=== PATIENT | male | born 1975 | race African-American/Black ===

== ENCOUNTER 2022-08-18 07:04 | Day surgery (SDC) | payer OTHER, SELFPAY ==
--- NOTE | 2022-08-17 21:35 | W.PM.DSUDISC ---
Date of service: 08/18/22 Time of Service: 08:43 Discharge Plan Disposition Patient Disposition: HOME Condition: Good Condition: Good Discharge Details Reason For Visit: EGD and colonoscopy Attending Provider: Mark Corrales Primary Care Provider: Unknown,Unknown Home Meds and New Rx's Prescriptions: New omeprazole 20 mg capsule,delayed release(DR/EC) 20 mg PO DAILY Qty: 30 0RF Rx Instructions: Take 1 pill by mouth every day sucralfate [Carafate] 1 gram tablet 1 g PO QAC Qty: 30 0RF Continued acetaminophen 325 mg capsule 325 mg PO BID PRN lactase [Lactaid] 3,000 unit tablet 3,000 unit PO TID PRN Rx Instructions: administer with meals and/or snacks ibuprofen 200 mg tablet 600 mg PO Q6H PRN Discharge Instructions Instructions: Gastritis (DC), Diet for Stomach Ulcers and Gastritis (GEN) Additional Instructions: 1. If tolerated, consume a soft, low fiber diet for 1-2 days. 2. Do not drive, drink alcohol, operate machinery, make critical decisions, or do activities that require coordination or balance for 24 hours. 3. Because air was put into your colon during the procedure, expelling air from your rectum (passing gas or farting) is normal. 4. You may not have a bowel movement for 1-3 days because of the colonoscopy prep. This is normal. 5. You may experience a sore throat for 24 to 48 hours. You may use throat lozenges or gargle with warm salt water to relieve the discomfort. 6. Because air was put into your stomach during the procedure, you may experience some belching. 7. Go directly to the emergency room if you notice any of the following: Develop chills (warm to touch), or if you have a thermometer and your temperature is above 101 Difficulty breathing or difficultly swallowing Persistent vomiting Severe abdominal pain, other than gas cramps Severe chest pain Black, tarry stools Any bleeding ? exceeding one tablespoon 8. Call your physician if the site where your intravenous was started becomes red, swollen, painful, and warm to touch. 9. Your physician has reviewed your pre-procedure medications. Please continue to take those medications as previously ordered. You will be given specific information/education regarding any changes to your medications before leaving. Activity:: Activity as Tolerated Activity:: Activity as Tolerated Diet:: As Tolerated DS: Diagnosis Discharge Diagnosis (1) Gastritis: Status: Acute Asessment and Plan: You have diffuse inflammation of the stomach lining. Start taking omeprazole and sucralfate as ordered. I will be in touch when I have the results of the biopsies that were performed. (2) Rectal ulcer: Status: Acute Asessment and Plan: I will contact you with results of these biopsies.
--- NOTE | 2022-08-17 21:37 | W.COLOREPORT ---
Date of service: 08/18/22 Time of Service: 08:51 Colonoscopy Report Date of procedure: 08/18/22 Pre-op diagnosis general: Anemia Post-op diagnosis procedure note: other (Anemia with gastritis) Procedure: Esophagogastroduodenoscopy and colonoscopy Surgeon: Mark Corrales Anesthesia Type: General:No Airway Estimated blood loss (mL): 20 Pathology: other (Duodenum, duodenal ulcers, antral ulcers, antrum, gastric body, esophagus, rectal ulcer) Complications: None Disposition: same day Indications: Tyrel is a 47-year-old male with anemia of uncertain etiology. Additionally, he has symptoms of gastritis. Prep: Miralax/Dulcolax Procedure Start Time: 08:07 Procedure End Time: 08:35 Retraction Time: 15 Findings: Diffuse gastritis, with subcentimeter prepyloric antral ulcers, as well as subcentimeter duodenal ulcers. Procedure Description: After the initiation of monitored anesthetic care, and with the assistance of a bite block, I advanced a standard gastroscope through the mouth past the hypopharynx and into the esophagus.? Under the direct vision of the scope, I advanced down the esophagus into the stomach.? Once I entered the stomach, I performed a brief inspection, followed by retroflexion towards the gastric cardia.? There was diffuse gastritis, mostly involving the gastric body. This appeared normal.? After that, I gently advanced the scope around the incisura angularis and examined the pylorus.? There was some linear ulceration radiating out from the pyloric orifice..? Next, I advanced the scope through the pylorus into the duodenum.? The mucosa was pink and healthy appearing.? There were a few subcentimeter ulcers of the duodenal bulb.? I was able to visualize bile draining into the duodenum through the ampulla Vater. The rest of the duodenum appeared normal. ?Next, I began retracting the endoscope.? I performed random biopsies of the duodenum, as well as biopsies of the duodenal bulb ulceration. Again, I returned to the stomach. I biopsied the prepyloric antral ulcers. I also perform random biopsies of the normal-appearing antrum, as well as the gastritis of the stomach body. All biopsies were performed with cold forceps, and there was minimal bleeding from each site. I then gently desufflated some of the stomach, and withdrew the endoscope into the distal esophagus. The GE junction and Z-line were normal-appearing around 39 cm. ?Finally, I withdrew the scope along the length of the esophagus taking great care to examine the entirety of the mucosa.? I did not appreciate any abnormalities. Next, we moved him all into the left lateral decubitus position., I began by performing an external anorectal exam.? Perineum and skin were normal, as was the anal verge.? There was no evidence of external hemorrhoids.? Next, I performed a digital rectal exam.? I did not appreciate any abnormal findings.? Next, I advanced a colonoscope into the rectal vault.? I performed retroflexion.? There were grade 1 internal hemorrhoids..? Using insufflation, I then advanced the colonoscope beyond the rectal folds and into the sigmoid colon before advancing towards the cecum.? Around 15 cm from the anal verge, there were 2 subcentimeter ulcers adjacent to the rectal fold. I performed cold biopsies with biopsy forceps here. There was minimal bleeding. The quality of the prep was excellent.? The scope was noted to be in the cecum by identification of the ileocecal valve and appendiceal orifice.? I then began withdrawing the colonoscope using repeated irrigation as necessary for full evaluation of the colonic mucosa. ?Once the scope was withdrawn to the level of the rectum, great care was taken to examine portions of the rectal folds.? Finally, the scope was withdrawn and the patient was brought to the same-day surgery recovery unit as the anesthetic wore off. ?The findings and instructions were shared with the patient prior to discharge.
--- NOTE | 2022-08-18 06:32 | W.ANESPRE ---
General Info Date of Service Date Performed: 08/18/22 Height: 5 ft 3 in Weight: 68.04 kg Body Mass Index (BMI): 26.5 Surgical Procedure: Operation Date: 08/18/22 08:20 Proposed Procedure Side Surgeon p Colonoscopy/Gastroscopy Mark Corrales MD Meds Allergies and Home Medications Allergies Allergy/AdvReac Type Severity Reaction Status Date / Time lactose Allergy Unknown Verified 08/18/22 07:29 Home Medication Medication Instructions Recorded acetaminophen 325 mg capsule 325 mg PO BID PRN 07/02/22 ibuprofen 200 mg tablet 600 mg PO Q6H PRN 07/02/22 lactase 3,000 unit tablet (Lactaid) 3,000 unit PO TID PRN 07/02/22 Current Visit Medications: Current Medications Generic Name Dose Route Start Last Admin Trade Name Freq PRN Reason Stop Dose Admin Hyoscyamine Sulfate 0.125 mg 08/17/22 21:37 Hyoscyamine 0.125 Mg Sl/Oral/Chew SL DIRECTED PRN Ringer's Solution 1,000 mls @ 80 mls/hr 08/18/22 06:00 IV 09/16/22 23:59 INFUSION DELANEY IV Miscellaneous Supplies 1 each 08/18/22 06:00 Iv Access IV 09/16/22 23:59 DIRECTED DELANEY Ondansetron HCl 4 mg 08/17/22 21:37 Ondansetron 4 Mg/2 Ml Vial IVP Q4H PRN PRN Nausea / Vomiting Sodium Chloride 0 ml 08/18/22 06:00 Normal Saline Flush 10 Ml Syr IV 09/16/22 23:59 PRN PRN Sodium Chloride 0 ml 08/18/22 06:00 Normal Saline 10 Ml Vial IJ 09/16/22 23:59 DIRECTED PRN Sterile Water 0 ml 08/18/22 06:00 Water,Injection,Sterile 10 Ml Vial IJ 09/16/22 23:59 DIRECTED PRN PFSH Active Problems Active Problems: Problem Status Onset Code Lactose intolerance E73.9 Low back pain M54.50 Anemia D64.9 Medical History Medical History COVID 05/31/22 Alcohol Alcohol Intake: current Substance Use Substance use type: does not use Vital Signs and Lab Results Lab Results Blood Type / Crossmatch: No Data to Display Complete Blood Count: No Data to Display Complete Metabolic Panel: No Data to Display Liver Function Panel: No Data to Display Coagulation Panel: No Data to Display Cardiac Panel: No Data to Display Arterial Blood Gas: No Data to Display Venous Blood Gas: No Data to Display Pancreas Panel: No Data to Display Thyroid Panel: No Data to Display Infectious Disease: No Data to Display Blood Cultures: No Data to Display Toxicology Panel: No Data to Display Anesthesia Assessment and Plan Anesthesia History Personal History: Unknown Anesthesia History Family History: Family History Unknown Exercise Tolerance Exercise Tolerance: Metabolic Equivalents>4 Cardiac & Pulmonary Exam Cardiac Exam: Normal S1/S2 Heart Sounds Pulmonary Exam: Clear Bilateral Breath Sounds Implantable Cardiac Device Does patient have a Pacemaker or an ICD?: No Airway Exam Known Difficult Airway: No Mallampati Class: 4 Mouth Opening: Narrow (< 3cm) Thyromental Distance: Greater than 3 cm Neck Range of Motion: Full ROM Neck Circumference: Normal Teeth Condition: Normal Dentition ASA Classification ASA Score: ASA 2 Emergency Case?: No NPO Status NPO Status: NPO Clears >2 hours, Solids >8 hours Anesthesia Plan Resuscitation Status: Full Code Anesthesia Technique: General Anesthesia Airway Planned: Natural Airway Monitors Used: Standard Monitors Preoperative Comments:: 47 yo male with anemia for EGD and colo. Sig PMHx: anemia, low back pain.
[2022-08-18 07:14] VITALS: BP 124/81; PULSE 60; RESP 16; TEMP 36.2; O2SAT 97
[2022-08-18] MEDS: Lactated Ringers 1,000 ML 80 ML IV (07:44)
[2022-08-18 07:48] VITALS: BMI 26.5
--- NOTE | 2022-08-18 08:07 | STOM_PTH ---
PATIENT: Tyrel Bird LOC: [facility] U#:[id number] AGE/SX: 47/M ROOM: RE08/18/[address]: Mark Corrales MD : [id number] BED: DIS: 08/18/2022 SPEC #: [id number] RECD: 08/18/22 12:38 STATUS: NIRAJ REQ #: [id number] JOSE: 08/18/22 08:[address]: Mark Corrales DEPT: Surgical Specimen RECD BY: Ginger Rincon ENTERED: 08/18/22 12:39 SP TYPE: STOMACH OTHR DR: Unknown,Unknown Tissues: 1 - BIOPSY BOWEL 2 - BIOPSY BOWEL 3 - STOMACH BIOPSY 4 - STOMACH BIOPSY 5 - STOMACH BIOPSY 6 - ESOPHAGUS BIOPSY 7 - BIOPSY BOWEL Procedures: GROSS AND MICRO LEVEL 4 Comments: [id number]
[2022-08-18 08:47] VITALS: BP 102/75; PULSE 62; RESP 18; TEMP 36.1; O2SAT 98
--- NOTE | 2022-08-18 08:58 | W.ANESPOSTOP ---
Postoperative Evaluation Date, Time and Location Date Performed: 08/18/22 Time Performed: 08:58 Patient Location: Day Surgery Unit Vital Signs Most Recent Imported Vital Signs: Most Recent Vital Signs Temp Pulse Resp BP Pulse Ox 36.1 C L 62 18 102/75 98 08/18/22 08:47 08/18/22 08:47 08/18/22 08:47 08/18/22 08:47 08/18/22 08:47 Pain Score Most Recent Pain Score: Most Recent Pain Score Pain Level 0 08/18/22 08:47 Assessment Mental Status: Arousable with meaningful communication Airway and Respiratory Function: Patent airway with normal (patient baseline) respiratory exam Cardiovascular Function: Hemodynamically Stable Hydration Status: Adequately Hydrated Nausea & Vomiting: No Nausea or Vomiting Pain: Pt. Denies Any Pain Peripheral Nerve Block: Patient did not receive a nerve block
[2022-08-18 09:18] VITALS: BP 124/84; PULSE 57; RESP 17; TEMP 36.1; O2SAT 99
== END 2022-08-18 09:47 | disposition home or self-care (01) ==
LOC: SUR 07:04
PROVIDERS: Visit Provider Surgery
PROC: (CPT 45380; principal; 2022-08-18 08:15)
DX: D64.9 Anemia, unspecified (principal); K29.70 Gastritis, unspecified, without bleeding; K62.6 Ulcer of anus and rectum; K26.9 Duodenal ulcer, unspecified as acute or chronic, without hemorrhage or perforation; K25.9 Gastric ulcer, unspecified as acute or chronic, without hemorrhage or perforation; K22.10 Ulcer of esophagus without bleeding; K64.0 First degree hemorrhoids; B96.81 Helicobacter pylori [H. pylori] as the cause of diseases classified elsewhere
CPT/HCPCS: 45380; 43239; 88305